=== PATIENT | male | born 1985 | race Caucasian/White ===

== ENCOUNTER 2017-11-14 08:41 | Emergency (ER) | payer BC ==
[~2017-11-14] VITALS: Ht 170.2 cm; Wt 67.1 kg
--- NOTE | 2017-11-14 08:50 | NUR ---
gema amin dermabonded the lac.
--- NOTE | 2017-11-14 08:58 | NUR ---
Patient discharged to home in stable conditon. Written and verbal after care instructions given. Patient verbalizes understanding of instructions.
== END 2017-11-14 09:00 | disposition home or self-care (01) ==
LOC: ER 08:41
DX: S01.81XA Laceration without foreign body of other part of head, initial encounter (principal); S01.85XA Open bite of other part of head, initial encounter; W54.0XXA Bitten by dog, initial encounter; Y93.89 Activity, other specified; Y92.89 Other specified places as the place of occurrence of the external cause; Y99.8 Other external cause status
CPT/HCPCS: A4217; A4663

== ENCOUNTER 2018-05-28 12:10 | Emergency (ER) | payer BC, OTHER ==
[~2018-05-28] VITALS: Ht 170.2 cm; Wt 68.0 kg
--- NOTE | 2018-05-28 12:22 | NUR ---
Dr Faith at the bedside for MSE.
[2018-05-28] MEDS ORDERED: IV NORMAL SALINE 1000 ML BAG IV ONE (12:30)
[2018-05-28] MEDS ORDERED: SWABABLE VALVE TRANSFER SET EA MC ONE (12:36)
[2018-05-28] MEDS ORDERED: IV NORMAL SALINE 250 ML IV ONE (12:37)
[2018-05-28] MEDS ORDERED: IOHEXOL 350 100 ML INFUS..BTL ONE (12:37)
[2018-05-28 12:41] LABS: BASOPHILS % (AUTO) 0.5 % (0.0-2.0); EOSINOPHILS # (AUTO) 0.1 K/uL (0.0-0.7); EOSINOPHILS % (AUTO) 1.6 % (0.0-7.0); HEMATOCRIT 45.8 % (36.7-47.1); HEMOGLOBIN 15.7 g/dL (12.5-16.3); LYMPHOCYTES # (AUTO) 1.6 K/uL (20.0-40.0); LYMPHOCYTES % (AUTO) 27.3 % (20.5-51.5); MEAN CORPUSCULAR HEMOGLOBIN 29.7 uug (23.8-33.4); MEAN CORPUSCULAR HGB CONC 34 g/dL (32.5-36.3); MEAN CORPUSCULAR VOLUME 86.5 fL (73.0-96.2); MONOCYTES # (AUTO) 0.4 K/uL (2.0-10.0); MONOCYTES % (AUTO) 6.1 % (0.0-11.0); NEUTROPHILS # (AUTO) 3.8 K/uL (1.8-8.9); NEUTROPHILS % (AUTO) 64.5 % (38.5-71.5); PLATELET COUNT (AUTO) 235 K/uL (152-348); RED BLOOD CELL COUNT(AUTO) 5.29 MIL/uL (4.06-5.63); WHITE BLOOD COUNT (AUTO) 5.9 K/uL (3.6-10.2)
[2018-05-28 12:48] LABS: CREATININE 1.1 mg/dL (0.6-1.3); POTASSIUM 3.7 mmol/L (3.5-5.1)
--- NOTE | 2018-05-28 13:08 | NUR ---
pt signed consent for CTA. Placed in the chart.
[2018-05-28] MEDS ORDERED: ACETAMINOPHEN ES 500 MG TABLET PO ONE (14:45)
[2018-05-28] MEDS ORDERED: ACETAMINOPHEN ES 500 MG TABLET ONE (14:47)
[2018-05-28] MEDS ORDERED: IBUPROFEN 800 MG TABLET ONE (15:05)
[2018-05-28] MEDS ORDERED: IBUPROFEN 800 MG TABLET PO ONE (15:15)
--- NOTE | 2018-05-28 15:29 | NUR ---
IV removed. Catheter intact and site benign. Pressure and 4x4 gauze applied to site. No bleeding noted.
--- NOTE | 2018-05-28 15:29 | NUR ---
Patient discharged to home in stable conditon. Written and verbal after care instructions given. Patient verbalizes understanding of instructions.
[2018-05-28 15:30] VITALS: BP 140/89
== END 2018-05-28 15:32 | disposition home or self-care (01) ==
LOC: ER 12:10
DX: R51 Headache (principal)
CPT/HCPCS: 36415; 70450; 70496; 80048; 85025; 99284; Q9967; A4663; A9150; J7030; J7050